=== PATIENT | male | born 1990 | race Two or more races ===

== ENCOUNTER 2021-04-28 21:54 | Emergency (ER) | payer MEDICAID, OTHER ==
[~2021-04-28] VITALS: Ht 180.3 cm; Wt 99.8 kg
[2021-04-28 23:01] VITALS: BP 165/99
[2021-04-28] MEDS ORDERED: NEOMYCIN-BACITRACIN-POLYM UNITDOSE PKG TOP OINT TOP ONE (23:30)
== END 2021-04-29 00:04 | disposition home or self-care (01) ==
LOC: ER 21:54
DX: S61.412A Laceration without foreign body of left hand, initial encounter (principal); W26.8XXA Contact with other sharp object(s), not elsewhere classified, initial encounter; Y93.89 Activity, other specified; Y92.79 Other farm location as the place of occurrence of the external cause; Y99.8 Other external cause status
CPT/HCPCS: 12002

== ENCOUNTER 2021-05-08 12:15 | Emergency (ER) | payer MEDICAID ==
[~2021-05-08] VITALS: Ht 182.9 cm; Wt 113.4 kg
[2021-05-08 12:16] VITALS: BP 147/101
[2021-05-08] MEDS ORDERED: KETOROLAC TROMETH 30 MG/ML 1ML VIAL IV ONE (14:00)
[2021-05-08] MEDS ORDERED: CLINDAMYCIN 600MG IV 50 ML IV ONE (14:00)
== END 2021-05-08 14:24 | disposition home or self-care (01) ==
LOC: ER 12:15
DX: K04.7 Periapical abscess without sinus (principal); R22.0 Localized swelling, mass and lump, head; F17.210 Nicotine dependence, cigarettes, uncomplicated; Z90.89 Acquired absence of other organs
CPT/HCPCS: 96365; 96375; 99284; J1885; J3490